=== PATIENT | male | born 1985 | race Caucasian/White ===

== ENCOUNTER 2024-05-23 21:06 | Emergency (ER) | payer SELFPAY ==
[2024-05-23 21:39] LABS: BASOPHILS PERCENT AUTO 0.8 % (0.0-1.0); EOSINOPHILS PERCENT AUTO 0.1 % (1.0-3.0); HEMATOCRIT 47.2 % (40.0-54.0); HEMOGLOBIN 16.8 g/dL (14.0-18.0); LYMPHOCYTES PERCENT AUTO 16.5 % (20.5-50.1); MEAN CORPUSCULAR HEMOGLOBIN 32.6 pg (27.0-34.0); MEAN CORPUSCULAR HGB CONC 35.6 g/dL (33.0-35.0); MEAN CORPUSCULAR VOLUME 91.7 fL (80-100); MONOCYTES PERCENT AUTO 5.3 % (2-8); NEUTROPHILS PERCENT AUTO 77.3 % (42.2-75.2); PLATELET COUNT,PLT 283 10^3/uL (150-450); RED BLOOD CELL COUNT 5.15 10^6/uL (4.6-6.2); WHITE BLOOD CELL COUNT,WBC 9.6 10^3/uL (5.0-10.0)
[2024-05-23 22:00] LABS: A/G RATIO 1.2; ALANINE AMINOTRANSFERASE,ALT 30 U/L (16-63); ALKALINE PHOSPHATASE 64 U/L (46-116); ANION GAP 13.2 mEq/L (7-13); ASPARTATE AMNIOTRANSFERASE,AST 27 U/L (15-37); BILIRUBIN TOTAL 0.2 mg/dL (0.2-1.0); BLOOD UREA NITROGEN,BUN 13 mg/dL (7-18); BUN/CREATININE RATIO 14.4 (No establ ref range); CALCIUM 8.6 mg/dL (8.5-10.1); CARBON DIOXIDE,CO2 33 mmol/L (21-32); CHLORIDE,CL 100 mmol/L (98-107); GLUCOSE RANDOM 107 mg/dL (70-99); POTASSIUM,K 3.2 mmol/L (3.5-5.1); PROTEIN TOTAL,TP 7.4 g/dL (6.4-8.2); SODIUM,NA 143 mmol/L (136-145)
[2024-05-23] MEDS: Sodium Chloride 0.9% 1,000 ML IV ONE (22:00)
[2024-05-23 22:09] LABS: ACETAMINOPHEN 0 ug/mL (10-30 (Therapeutic)); ESTIMATED GFR 111 mL/min (>=60)
[2024-05-23] MEDS: Sodium Chloride 0.9% 10 ML Syringe FLUSH PRN (22:17)
[2024-05-23] MEDS: Potassium Chloride 10 MEQ Tab.ER PO ONE (22:41)
[2024-05-23] MEDS: MVI, Adult with Vitamin K 10 ML, Folic Acid 1 MG, Thiamine 100 MG in Lactated Ringers 1... IV ONE (22:41)
[2024-05-23] MEDS: LORazepam 2 MG/ML SDV IVPUSH ONE (22:51)
[2024-05-23] MEDS: LORazepam 2 MG/ML SDV ONE (22:53)
[2024-05-23 23:02] LABS: APPEARANCE,URINE CLEAR (CLEAR); BILIRUBIN,URINE NEGATIVE (NEGATIVE); COLOR,URINE YELLOW (YELLOW); GLUCOSE,URINE NEGATIVE (NEGATIVE); KETONES,URINE NEGATIVE (NEGATIVE); LEUKOCYTE ESTERASE,URINE NEGATIVE (NEGATIVE); NITRITE,URINE NEGATIVE (NEGATIVE); OCCULT BLOOD,URINE NEGATIVE (NEGATIVE); PH,URINE 8.5 (5.0-9.0); PROTEIN,URINE TRACE (NEGATIVE); UROBILINOGEN,URINE 0.2 mg/dL (0.2-1.0)
[2024-05-23 23:08] LABS: AMPHETAMINES,URINE NEGATIVE (NEGATIVE); BARBITURATES,URINE NEGATIVE (NEGATIVE); BENZODIAZEPINE,URINE NEGATIVE (NEGATIVE); MDMA (ECSTASY), URINE NEGATIVE (NEGATIVE); METHADONE,URINE NEGATIVE (NEGATIVE); METHAMPHETAMINES,URINE NEGATIVE (NEGATIVE); OPIATES,URINE NEGATIVE (NEGATIVE); OXYCODONE,URINE NEGATIVE (NEGATIVE); PHENCYCLIDINE,URINE NEGATIVE (NEGATIVE); TCA,URINE NEGATIVE (NEGATIVE)
[2024-05-23 23:15] LABS: BACTERIA,URINE FEW /HPF (0-FEW/HPF); EPITHELIAL CELLS,URINE FEW /HPF (NOT SEEN); MUCUS,URINE FEW /LPF (NOT SEEN); RBC,URINE 0-5 /HPF (0-5); WBC,URINE 0-5 /HPF (0-5/HPF)
[2024-05-24] MEDS: Potassium Chloride 10 MEQ Tab.ER PO ONE (00:53)
[2024-05-24] MEDS: Nicotine 21 MG/24 Hr Patch TRDERM ONE (01:42)
[2024-05-24] MEDS: Sodium Chloride 0.9% 1,000 ML IV ONE (01:43)
[2024-05-24] MEDS: LORazepam 2 MG/ML SDV IVPUSH ONE (01:56)
[2024-05-24] MEDS: Ondansetron 4 MG/2 ML SDV IVPUSH ONE (01:56)
== END 2024-05-24 06:15 | disposition home or self-care (01) ==
LOC: DL.ED 21:06
DX: E87.6 Hypokalemia (principal); F10.229 Alcohol dependence with intoxication, unspecified; F10.239 Alcohol dependence with withdrawal, unspecified; F17.210 Nicotine dependence, cigarettes, uncomplicated
CPT/HCPCS: 36415; 80053; 80143; 80179; 80305-QW; 80307; 81001; 85025; 96361; 96365; 96375; 96376; 99284-25; A9270-GY; J2060; J2405; J3411; J3490; J7030; J7120